=== PATIENT | male | born 1960 | race Two or more races ===

== ENCOUNTER 2019-06-05 06:19 | Emergency (ER) | payer MEDICAID, OTHER ==
[~2019-06-05] VITALS: Ht 162.6 cm; Wt 87.0 kg
[~2019-06-05 06:19] MED LIST: ATOR20TA PO; LISI-643 PO; LORA10TA65 PO
[2019-06-05 07:02] VITALS: BP 149/79
[2019-06-05] MEDS ORDERED: ACET-3068 PO (07:22)
== END 2019-06-05 07:36 | disposition home or self-care (01) ==
LOC: ER 06:20
DX: S90.31XA Contusion of right foot, initial encounter (principal); T69.9XXA Effect of reduced temperature, unspecified, initial encounter; E78.00 Pure hypercholesterolemia, unspecified; I10 Essential (primary) hypertension; Z79.899 Other long term (current) drug therapy; W22.8XXA Striking against or struck by other objects, initial encounter; Y93.89 Activity, other specified; Y92.89 Other specified places as the place of occurrence of the external cause; Y99.8 Other external cause status
CPT/HCPCS: 73630; 93005; 99283